=== PATIENT | male | born 1975 | race Caucasian/White ===

== ENCOUNTER 2020-08-07 07:07 | Emergency (ER) | payer OTHER, SELFPAY ==
[2020-08-07 07:15] VITALS: BP 145/101; PULSE 75; RESP 20; TEMP 36.4; O2SAT 100
--- NOTE | 2020-08-07 08:30 | ED.EYEPROB ---
HPI - Eye Problem General Chief complaint: Eye Problems Stated complaint: Right eye swelling Time Seen by Provider: 08/07/20 07:12 Source: patient Mode of arrival: ambulatory Limitations: no limitations History of Present Illness HPI Narrative: Patient is a 44 year old male who presents for evaluation of right eye redness and swelling. Patient states 2 weeks ago he was diagnosed with bilateral conjunctivitis, and he was prescribed antibiotics eye drops of with neomycin. He states his eye redness resolved. This past Sunday he states his right eye started feeling sore so he started using the drops again. He states his redness in his eye is still present and he has mild swelling to eye. He reports mild itching. His eyes are watery. He denies fever or chills. He denies blurred vision. He states his eyes were redder the first time. He wears glasses but denies contact use. Related Data Allergies Allergy/AdvReac Type Severity Reaction Status Date / Time No Known Allergies Allergy Verified 08/07/20 07:26 Review of Systems Review of Systems: All systems reviewed & are unremarkable except as noted in HPI and below Eyes: Eyes: Reports change in vision ENT: Denies dysphagia, Denies dizziness, Denies epistaxis and Denies sore throat PMFSH Past Medical History Medical History (Updated 08/07/20 @ 08:41 by Sravani Painter MD) Patient denies medical problems Surgical History Surgical History (Updated 08/07/20 @ 08:34 by Sravani Painter MD) Hx of appendectomy Social History Social History (Updated 08/07/20 @ 08:34 by Sravani Painter MD) Smoking status: Current every day smoker Substance use: never Exam Const: General: no acute distress and alert Orientation/consciousness: patient oriented x3 HENMT: Head: normocephalic and atraumatic Mouth: Yes Normal oral and palatal mucosa present, Yes lip normal, Yes oropharynx normal and Yes moist mucous membranes Eyes: Conjunctivae: conjunctival abnormality right conjunctival injection; without pterygia and without subconjunctival hemmorhages Pupils: Equal, round and reactive pupils present EOM: EOMs intact bilaterally Resp: Effort & Inspection: normal respiratory effort Course Reevaluation(s) Reevaluation #1: I discussed with patient I think he likely has allergic conjunctivitis from his eye drops. He will stop Date: 08/07/20 Time: 08:38 Vital Signs Vital signs: Vital Signs Temperature 97.5 F L 08/07/20 07:15 Pulse Rate 75 08/07/20 07:15 Respiratory Rate 20 08/07/20 07:15 Blood Pressure 145/101 H 08/07/20 07:15 Pulse Oximetry 100 08/07/20 07:15 Temperature 97.5 F L 08/07/20 07:15 Pulse Rate 70 08/07/20 09:00 Respiratory Rate 20 08/07/20 09:00 Blood Pressure 140/99 H 08/07/20 09:00 Pulse Oximetry 100 08/07/20 09:00 Discharge Plan Discharge Clinical Impression: Allergic conjunctivitis of right eye Patient Disposition: Home, Self-Care Condition: Stable Instructions: Antibiotic Form, Conjunctivitis (ED) Additional Instructions: I think your eye redness is an allergic response to your eye drops. Stop using thos antibiotic drops. Apply cold compress to your eye 4 times a day. You can use over the counter eye drops such as ketotifen or Naphcon- A. On Sunday follow up with eye doctor if your symptoms do not improve. We do not have eye doctors at this hospital. Prescriptions: New Naphcon-A 0.025-0.3 % drops 2 drp EACH EYE QID PRN (Reason: eye irritation) Qty: 10 RF: 0 Follow-up/Referrals: Kyaw,MD Monica [Primary Care Provider] -
[2020-08-07 09:00] VITALS: BP 140/99; PULSE 70; RESP 20; O2SAT 100
== END 2020-08-07 09:05 | disposition home or self-care (01) ==
PROVIDERS: Emergency Provider General Practice; PCP Internal Medicine
DX: H10.11 Acute atopic conjunctivitis, right eye (principal); F17.200 Nicotine dependence, unspecified, uncomplicated
CPT/HCPCS: 99283; A9270

== ENCOUNTER 2020-08-09 16:41 | Emergency (ER) | payer OTHER, SELFPAY ==
[2020-08-09 16:43] VITALS: BP 161/88; PULSE 64; RESP 20; TEMP 36.3; O2SAT 100
--- NOTE | 2020-08-09 17:40 | ED.EYEPROB ---
HPI - Eye Problem General Chief complaint: Eye Problems Stated complaint: Right Eye Swelling Time Seen by Provider: 08/09/20 16:58 Source: patient Mode of arrival: ambulatory Limitations: no limitations History of Present Illness HPI Narrative: Patient is a 44-year-old male who presents with bilateral eye irritation was seen 2 days ago in the emergency department diagnosed with allergic conjunctivitis patient notes that he has been using the antihistamine drops with no improvement patient notes now both eyes are involved patient did not follow-up with ophthalmology patient notes some runny nose but denies other URI symptoms or any injury or trauma Related Data Allergies Allergy/AdvReac Type Severity Reaction Status Date / Time No Known Allergies Allergy Verified 08/07/20 07:26 Review of Systems Review of Systems: All systems reviewed & are unremarkable except as noted in HPI and below PMFSH Past Medical History Medical History Patient denies medical problems Surgical History Surgical History Hx of appendectomy Social History Social History Smoking status: Current every day smoker Substance use: never Exam Narrative: Exam Narrative: GENERAL: Well-appearing, well-nourished, and in no acute distress. HEAD: Normocephalic, atraumatic. EYES: PERRLA and EOMI. bilateral conjunctival injection right worse than left ENT: Nares clear, no rhinorrhea or epistaxis. Mucous membranes moist. CHEST: Clear to auscultation. No respiratory distress. No wheezes rales or rhonchi HEART: Regular rate and rhythm. No murmur heard. EXTREMITIES: Normal range of motion. No edema. SKIN: Warm, dry, no rash. NEURO: No focal deficits. Alert and oriented x3. PSYCH: Normal mood and affect. Course Course Emergency Course: Patient presented with continued redness of the eyes patient was given erythromycin ophthalmic ointment in the emergency department advised to use [id number] preservative-free tears will be discharged with ophthalmology follow-up and is agreeing to follow with ophthalmology as instructed Vital Signs Vital signs: Vital Signs Temperature 97.3 F L 08/09/20 16:43 Pulse Rate 64 08/09/20 16:43 Respiratory Rate 20 08/09/20 16:43 Blood Pressure 161/88 H 08/09/20 16:43 Pulse Oximetry 100 08/09/20 16:43 Temperature 97.3 F L 08/09/20 16:43 Pulse Rate 64 08/09/20 16:43 Respiratory Rate 20 08/09/20 16:43 Blood Pressure 161/88 H 08/09/20 16:43 Pulse Oximetry 100 08/09/20 16:43 MDM - Eye Problem MDM Narrative Medical decision making narrative: Patient with conjunctivitis will be referred to ophthalmology and is agreeing to follow-up as instructed felt appropriate for outpatient reevaluation Discharge Plan Discharge Clinical Impression: Bacterial conjunctivitis Patient Disposition: Home, Self-Care Condition: Stable Instructions: Antibiotic Form, Conjunctivitis (ED) Additional Instructions: Follow-up with ophthalmology first thing tomorrow to set up for reevaluation in the next 2 days Use erythromycin ophthalmic ointment in the in both eyes every 6 hours Use [id number] preservative-free tears every 2 hours for symptom relief Return if symptoms worsen or concerns or any increase in redness swelling pain fever over 100.5 vomiting or visual changes Follow patient education sheets Prescriptions: New fluticasone propionate [Flonase Allergy Relief] 50 mcg/actuation spray,suspension 2 spray intranasal DAILY Qty: 16 RF: 0 ibuprofen [IBU] 600 mg tablet 600 mg PO Q6H PRN (Reason: fever or pain) Qty: 7 RF: 0 No Action Naphcon-A 0.025-0.3 % drops 2 drp EACH EYE QID PRN (Reason: eye irritation) Qty: 10 RF: 0 Follow-up/Referrals: Evangelist,MD Monica [Primary Care Provider] - [id number]
[2020-08-09] MEDS: ERYTHROMYCIN OPHTH OINTMENT 1 GM TUBE 1 APPLIC EACH EYE (17:48)
[2020-08-09 17:56] VITALS: PULSE 65; RESP 20
== END 2020-08-09 17:58 | disposition home or self-care (01) ==
PROVIDERS: Emergency Provider Emergency Medicine; PCP Internal Medicine
DX: H10.89 Other conjunctivitis (principal); F17.200 Nicotine dependence, unspecified, uncomplicated
CPT/HCPCS: 99283; A9270

== ENCOUNTER 2020-09-04 22:16 | Emergency (ER) | payer OTHER, SELFPAY ==
[2020-09-04 22:22] VITALS: BP 176/111; PULSE 96; RESP 16; TEMP 36.4; O2SAT 100
--- NOTE | 2020-09-04 22:54 | ED.EAR ---
HPI - Ear Problem General Chief complaint: Ear Stated complaint: ears clogged. Time Seen by Provider: 09/04/20 22:47 History of Present Illness HPI Narrative: Patient is a 45-year-old male who presents ER with ringing in his ears. Patient reports for the last 2 weeks he feels like he has been hearing ringing in his ear especially at night. At times all signs are crickets far away. His ears feel clogged. He reports he does clean them with Q-tips but has not had any painful trauma during this. No fevers or chills or sweats. No pain or dizziness. Reports prior to this occurring he did have an episode of conjunctivitis. He is not having sinus congestion or productive cough/sore throat. Has not found any aggravating or alleviating factors. Related Data Allergies Allergy/AdvReac Type Severity Reaction Status Date / Time No Known Allergies Allergy Verified 08/07/20 07:26 Review of Systems Constitutional: Constitutional: Denies chills and Denies fever(s) ENT: Denies vertigo, Denies dizziness, Denies nasal congestion and Denies sore throat Comments: Ringing in the ears. Gastrointestinal: Gastrointestinal: Denies nausea and Denies vomiting PMFSH Past Medical History Medical History Patient denies medical problems Surgical History Surgical History Hx of appendectomy Social History Social History Smoking status: Current every day smoker Substance use: never Exam Narrative: Exam Narrative: GENERAL: Well-appearing, well-nourished, and in no acute distress. HEAD: Normocephalic, atraumatic. ENT: Mucous membranes moist. Tympanic membranes opaque bilaterally. Left tympanic membrane with small area about the represent blood externally on the inferior aspect. No evidence of infection. Ear canals are free of cerumen bilaterally. Normal external ear. NECK: Supple. NEURO: Alert and oriented x3. PSYCH: Normal mood and affect. Course Course Emergency Course: Will refer to ENT. In the interim patient be started on Flonase, guaifenesin, and Zyrtec. Patient may be having some eustachian tube dysfunction that is causing increased pressure of the middle ear causing him to not be able to hear as well. Patient also could be developing M?ni?re's disease but is without vertigo. Patient verbalized understanding of treatment plan. Vital Signs Vital signs: Vital Signs Temperature 97.6 F 09/04/20 22:22 Pulse Rate 96 09/04/20 22:22 Respiratory Rate 16 09/04/20 22:22 Blood Pressure 176/111 H 09/04/20 22:22 Pulse Oximetry 100 09/04/20 22:22 Temperature 97.6 F 09/04/20 22:22 Pulse Rate 96 09/04/20 22:22 Respiratory Rate 16 09/04/20 22:22 Blood Pressure 176/111 H 09/04/20 22:22 Pulse Oximetry 100 09/04/20 22:22 Medical Decision Making Vital Signs Vital Signs: Vital Signs Temperature 97.6 F 09/04/20 22:22 Pulse Rate 96 09/04/20 22:22 Respiratory Rate 16 09/04/20 22:22 Blood Pressure 176/111 H 09/04/20 22:22 Pulse Oximetry 100 09/04/20 22:22 Temperature 97.6 F 09/04/20 22:22 Pulse Rate 96 09/04/20 22:22 Respiratory Rate 16 09/04/20 22:22 Blood Pressure 176/111 H 09/04/20 22:22 Pulse Oximetry 100 09/04/20 22:22 Discharge Plan Discharge Clinical Impression: Bilateral tinnitus Patient Disposition: Home, Self-Care Condition: Stable Instructions: Tinnitus (ED) Additional Instructions: Return to the ER if you have severe uncontrolled dizziness, you cannot keep down food or water, you have chest pain or shortness of breath, you have additional concerns. Prescriptions: New fluticasone propionate [Flonase Allergy Relief] 50 mcg/actuation spray,suspension 1 spray intranasal Q12H Qty: 16 RF: 0 cetirizine [Zyrtec] 10 mg tablet 10 mg PO DAILY Qty: 14 RF: 0 guaifenesi
[2020-09-04 23:47] VITALS: BP 172/94; PULSE 89; RESP 20; O2SAT 95
== END 2020-09-04 23:57 | disposition home or self-care (01) ==
PROVIDERS: Emergency Provider Emergency Medicine; PCP Internal Medicine
DX: H93.13 Tinnitus, bilateral (principal); F17.200 Nicotine dependence, unspecified, uncomplicated
CPT/HCPCS: 99283

== ENCOUNTER 2020-09-11 17:40 | Emergency (ER) | payer OTHER, SELFPAY ==
[2020-09-11 17:43] VITALS: BP 168/108; PULSE 82; RESP 18; TEMP 36.9; O2SAT 100
--- NOTE | 2020-09-11 18:07 | ED.GENADULT ---
HPI - General Adult General Chief complaint: Ear Stated complaint: ears clogged causing headache Time Seen by Provider: 09/11/20 17:50 Source: patient Mode of arrival: ambulatory Limitations: no limitations History of Present Illness HPI narrative: Patient presents with chief complaint of bilateral ear pressure, intermittent radiating and feelings of congestion that has been occurring for over a month. Patient was seen in this emergency department approximately 1 week ago. He was prescribed Zyrtec but stopped it due to drowsiness. He did not start the mucinex. He has been using flonase. He has had trouble finding ENT that will accept his insurance near [facility] where he was living. Due to financially issues he states he is residing locally for a while. Related Data Allergies Allergy/AdvReac Type Severity Reaction Status Date / Time No Known Allergies Allergy Verified 09/11/20 17:47 Review of Systems Review of Systems: Narrative: CONSTITUTIONAL: Denies fever, chills, or sweats. EYES: Denies visual changes, redness, or discharge. ENT: Reports ear pressure and congestion Denies rhinorrhea, sinus pain or drainage, sore throat CARDIOVASCULAR: Denies chest pain, palpitations, or edema. RESPIRATORY: Denies cough or dyspnea. GASTROINTESTINAL: Denies abdominal pain, nausea, vomiting, or diarrhea. GENITOURINARY: Denies dysuria or hematuria. SKIN: Denies rash or itching. MUSCULOSKELETAL: Denies back pain, myalgia, or joint pain NEUROLOGIC: Reports occasional headaches- patients baseline, Denies numbness, dizziness, or weakness. PSYCHIATRIC: Denies anxiety or depression. PMFSH Past Medical History Medical History Patient denies medical problems Surgical History Surgical History Hx of appendectomy Social History Social History Smoking status: Current every day smoker Substance use: never Gender identity (if verbalized by the patient): Male Exam Narrative: Exam Narrative: GENERAL: Well-appearing, well-nourished. HEAD: Normocephalic, atraumatic. EYES: PERRLA and EOMI. ENT: Nares clear, no rhinorrhea or epistaxis. Mucous membranes moist. Bilateral TMs pearly banks nonbulging. Serous otitis media clear to left ear. TM not buldging. very small area of increased vascularization to inferior aspect of left TM. No drainage or purulence noted. NECK: Supple. No adenopathy or masses. No vertebral tenderness or loss of ROM. CHEST: Clear to auscultation. No respiratory distress. No wheezes rales or rhonchi HEART: Regular rate and rhythm. Normal peripheral pulses. EXTREMITIES: No acute changes in ROM. No edema. SKIN: Warm, dry, no rash. NEURO: No focal deficits. Alert and oriented x3. PSYCH: Normal mood and affect. Course Vital Signs Vital signs: Vital Signs Temperature 98.5 F 09/11/20 17:43 Pulse Rate 82 09/11/20 17:43 Respiratory Rate 18 09/11/20 17:43 Blood Pressure 168/108 H 09/11/20 17:43 Pulse Oximetry 100 09/11/20 17:43 Temperature 98.5 F 09/11/20 17:43 Pulse Rate 82 09/11/20 17:43 Respiratory Rate 18 09/11/20 17:43 Blood Pressure 168/108 H 09/11/20 17:43 Pulse Oximetry 100 09/11/20 17:43 Medical Decision Making [facility] Narrative Medical decision making narrative: Discussed with the patient the importance of following up with ear nose throat for further evaluation. Patient states the Zyrtec made him drowsy so instructed him to switch to Claritin. He never started Mucinex which is due to the congestion and serous otitis I told him that I think it would be a good idea to trial. Patient declined ibuprofen or Toradol for headache. Patient denies any other needs or concerns. Differential Diagnosis Differential Diagnosis: otitis media, tinnitus, mastitis Vital Signs Vital Signs: Vital Signs Temperature 98.5 F
== END 2020-09-11 18:44 | disposition home or self-care (01) ==
PROVIDERS: Emergency Provider Emergency Medicine; PCP Internal Medicine
DX: H93.13 Tinnitus, bilateral (principal); H65.02 Acute serous otitis media, left ear; F17.200 Nicotine dependence, unspecified, uncomplicated
CPT/HCPCS: 99283